=== PATIENT | male | born 1960 | race Caucasian/White ===

== ENCOUNTER 2024-06-03 07:05 | Outpatient (CLI) | payer MEDICARE | END 2024-06-03 07:06 | disposition home or self-care (01) | LOC: CSHULT 07:05 | PROVIDERS: ATTEND Family Medicine | DX: Z12.2 Encounter for screening for malignant neoplasm of respiratory organs (principal); Z87.891 Personal history of nicotine dependence; Z13.6 Encounter for screening for cardiovascular disorders; R91.1 Solitary pulmonary nodule; I77.811 Abdominal aortic ectasia | CPT/HCPCS: 71271; 76706 ==